=== PATIENT | male | born 1990 | race Caucasian/White ===

== ENCOUNTER 2016-12-08 21:18 | Emergency (ER) | payer OTHER ==
--- NOTE | 2016-12-08 21:37 | EDM.PDOC ---
ED HPI GENERAL MEDICAL PROBLEM - General Stated Complaint: POSSIBLE FRACTURE RIGHT FOREARM Time Seen by Provider: 12/08/16 21:32 - History of Present Illness INITIAL COMMENTS - FREE TEXT/NARRATIVE: HISTORY AND PHYSICAL: History of present illness: Patient 26-year-old male presents with concern of right forearm pain he denies any trauma he has had prior surgery on his right forearm is concerned it he possibly is loose and the plates and screws related to his surgery. Review of systems: As per history of present illness and below otherwise all systems reviewed and negative. Past medical history: As per history of present illness and as reviewed below otherwise noncontributory. Surgical history: As per history of present illness and as reviewed below otherwise noncontributory. Social history: No reported history of drug or alcohol abuse. Family history: As per history of present illness and as reviewed below otherwise noncontributory. Physical exam: HEENT: Atraumatic, normocephalic, pupils reactive, negative for conjunctival pallor or scleral icterus, mucous membranes moist, throat clear, neck supple, nontender, trachea midline. Lungs: Clear to auscultation, breath sounds equal bilaterally, chest nontender. Heart: S1S2, regular, negative for clicks, rubs, or JVD. Abdomen: Soft, nondistended, nontender. Negative for masses or hepatosplenomegaly. Negative for costovertebral tenderness. Pelvis: Stable nontender. Genitourinary: Deferred. Rectal: Deferred. Extremities: No redness no crepitation or point tenderness EMS neurovascular is unremarkable Neuro: Awake, alert, oriented. Cranial nerves II through XII unremarkable. Cerebellum unremarkable. Motor and sensory unremarkable throughout. Exam nonfocal. Diagnostics: X-ray right forearm Therapeutics: None Impression: #1 right forearm pain Definitive disposition and diagnosis as appropriate pending reevaluation and review of above. - Related Data Allergies Allergy/AdvReac Type Severity Reaction Status Date / Time No Known Allergies Allergy Verified 06/16/14 21:40 Home Meds: Home Meds . [No Known Home Meds] 05/29/14 [History] Social & Family History - Tobacco Use Smoking Status *Q: Current Every Day Smoker Years of Tobacco use: 4 Second Hand Smoke Exposure: Yes - Alcohol Use Days Per Week of Alcohol Use: 1 Number of Drinks Per Day: 2 Total Drinks Per Week: 2 - Recreational Drug Use Recreational Drug Use: No ED ROS GENERAL - Review of Systems Review Of Systems: ROS reveals no pertinent complaints other than HPI. ED EXAM, GENERAL - Physical Exam Exam: See Below (See dictation) Course - Vital Signs Last Recorded V/S: Last Vital Signs Temp 36.8 C 12/08/16 21:31 Pulse 73 12/08/16 21:31 Resp 18 12/08/16 21:31 BP 123/65 12/08/16 21:31 Pulse Ox 99 12/08/16 21:31 - Orders/Labs/Meds Orders: Active Orders 24 hr Category Date Time Status Forearm 2V Rt [CR] Stat Exams 12/08/16 21:34 Ordered Departure - Departure Time of Disposition: 21:36 Disposition: Home, Self-Care 01 Condition: Good Clinical Impression: Forearm pain - Discharge Information Additional Instructions: The following information is given to patients seen in the emergency department who are being discharged to home. This information is to outline your options for follow-up care. We provide all patients seen in our emergency department with a follow-up referral. The need for follow-up, as well as the timing and circumstances, are variable depending upon the specifics of your emergency department visit. If you don't have a primary care physician on staff, we will provide you with a referral. We always advise you to contact your personal physician following an emergency department visit to inform them of the circumstance of the visit and for follow-up with them and/or the need for any referrals to a consulting specialist. The emergency department will also refer you to a specialist when appropriate. This referral assures that you have the opportunity for followup care with a specialist. All of these measure are taken in an effort to provide you with optimal care, which includes your followup. Under all circumstances we always encourage you to contact your private physician who remains a resource for coordinating your care. When calling for followup care, please make the office aware that this follow-up is from your recent emergency room visit. If for any reason you are refused follow-up, please contact the [facility] emergency department at and asked to speak to the emergency department charge nurse. [facility] [address], [address] [place] [address] Motrin/Tylenol as directed follow-up primary medical doctor/orthopedic surgery above return as needed as discussed] - My Orders Last 24 Hours: My Active Orders 12/08/16 21:34 Forearm 2V Rt [CR] Stat - Assessment/Plan Last 24 Hours: My Active Orders 12/08/16 21:34 Forearm 2V Rt [CR] Stat
[2016-12-08 23:16] VITALS: BP 110/54
--- NOTE | 2016-12-09 10:26 | CR ---
EXAM DATE: 12/08/16 PATIENT'S AGE: 26 Patient: LISANDRO JACKSON Facility: [place], [place] Site . Site : 1990 Study: XRay Extremity forearm [id number]/27/2017 10:03:26 PM Ordering Physician: Aisha Blackburn Final Report: INDICATION: Pain. Patient states heart groove feels loose and is tender TECHNIQUE: Two views right forearm COMPARISON: None FINDINGS: Bones: Alignment is normal. No fractures or bone lesions. Plate and screw fixation involving the mid radius and ulna. No obvious hardware abnormalities. Joint spaces: Unremarkable. Soft tissues: Unremarkable. IMPRESSION: Plate and screw fixation of the mid radius and ulna with no obvious hardware abnormalities. Dictated by Austyn Monroy MD @ 12/08/2016 10:15:51 PM Dictated by: Austyn Monroy MD @ 12/08/2016 22:15:57 (Electronic Signature) Report Signed by Proxy. AYANNA
== END 2016-12-08 23:34 | disposition home or self-care (01) ==
LOC: MW.ED 21:18
DX: M79.631 Pain in right forearm (principal); F17.210 Nicotine dependence, cigarettes, uncomplicated
CPT/HCPCS: 73090-26-RT; 73090-RT; 99282; 99283